=== PATIENT | female | born 1965 | race Caucasian/White ===

== ENCOUNTER → 2017-03-26 | Outpatient (CLI) | payer BC ==
[~2017-03-26] MED LIST: BENAZEPRIL HCL10 MG PO; BUPROPION XL150 MG PO; CLEOCIN150 MG PO; NAPROXEN PO; POTASSIUM CHLO10 ME1 PO; TRIAMTERENE-HCT1 TA6 PO; [UNRECOGNIZED DRUG - OTHER]
--- NOTE | ~2017-03-26 | US6 ---
[facility] A Service of [facility] & [facility] RADIOLOGY TEXT RESULTS PATIENT: KATIA HADLEY LOCATION: [facility] : 63 UNIT #: [id number] AGE: [address]: Britni Styles MD SEX: F ORDER DR: [id number] [facility] [address] [place], [place] [address] [id number] O MR#: [id number] Acc #: [id number] NAME: KATIA HADLEY : 1965 SEX: F STUDY DATE/TIME: 03/26/2017 9:02 UNIT: [facility] ROOM: STUDY DESCRIPTION: US Abdominal Limited Attending Physician: Britni Styles M.D. Referring Physician: Britni Styles M.D. Ordering Physician: Britni Styles M.D. Primary Care Physician: Britni Styles M.D. MEDICAL IMAGING REPORT This report is preliminary unless electronic signature is present EXAM Right upper quadrant ultrasound 03/26/2017 HISTORY Abnormally elevated liver enzymes, 03/05/2017 FINDINGS The liver demonstrates an increase in echotexture with attenuation of the ultrasound beam characteristic of fatty infiltration. No cystic or solid mass lesions were seen in the liver. The intra and extrahepatic bile ducts are not dilated. The gallbladder contains several small shadowing gallstones but there is no evidence of gallbladder wall thickening or pericholecystic fluid. The common duct measures 3 mm. The pancreas and right kidney are normal. IMPRESSION 1. Fatty infiltration of the liver. 2. Cholelithiasis. Dictated by... Lucas Hamlin M.D. THIS IS AN ELECTRONICALLY VERIFIED REPORT Lucas Hamlin M.D. at 03/27/2017 8:07 AM KRT/to TD: 03/26/2017 11:56 JOB #: [id number] MEDICAL IMAGING REPORT Page 1 of 1 COPY
== END | disposition home or self-care (01) ==
LOC: CGUS 03-20 07:30
DX: R94.5 Abnormal results of liver function studies (principal); K76.0 Fatty (change of) liver, not elsewhere classified; K80.20 Calculus of gallbladder without cholecystitis without obstruction
CPT/HCPCS: 76705